=== PATIENT | female | born 1965 | race Caucasian/White ===

== ENCOUNTER 2021-02-20 23:07 | Emergency (ER) | payer BC ==
[~2021-02-20] VITALS: Ht 154.9 cm; Wt 161.0 kg
--- NOTE | 2021-02-21 01:47 | NUR ---
[facility] 30MIN ETA
--- NOTE | 2021-02-21 02:12 | NUR ---
EMS AT BEDSIDE, REPORT GIVEN
--- NOTE | 2021-02-21 02:13 | NUR ---
NURSE MINERVA NOTIFIED THAT THE PATIENT IS GOING BACK TO THE FACILITY. REPORT GIVEN
--- NOTE | 2021-02-21 02:25 | NUR ---
NEED FOR BARIATRIC DENI
--- NOTE | 2021-02-21 03:07 | NUR ---
called [facility] for bariatric transport but no availability at this time. advised to call back after 0800
--- NOTE | 2021-02-21 03:09 | NUR ---
called [facility] for pariatric transport. no available resource. call back @ [phone]
[2021-02-21] MEDS ORDERED: HYDROCODONE/APAP 10/325MG TABLET PO ONE (04:30)
[2021-02-21] MEDS ORDERED: HYDROCODONE/APAP 10/325MG TABLET ONE ×2 (04:34→21:57)
--- NOTE | 2021-02-21 04:56 | NUR ---
CALLED [facility] FOR BARIATRIC TRANSPORT. ADVISED TO CALL BACK AFTER 0700 FOR AVAILABILITY
--- NOTE | 2021-02-21 05:11 | NUR ---
[facility] ETA @ 1800.
--- NOTE | 2021-02-21 08:20 | NUR ---
CALLED [facility] FOR TRANSPORT AND THEY DO NOT ACCEPT THIS PT'S INSURANCE
[2021-02-21] MEDS ORDERED: HYDROCODONE/APAP 5/325MG TABLET ONE ×2 (08:30→14:39)
[2021-02-21] MEDS ORDERED: HYDROCODONE/APAP 5/325MG TABLET PO ONE ×2 (08:30→15:00)
--- NOTE | 2021-02-21 08:41 | NUR ---
MEDICATED PER ERMD ORDER, PT [facility]. PT SITTING UP EATING BREAKFAST.
--- NOTE | 2021-02-21 10:00 | NUR ---
PT WATCHING TV, NAD NOTED AT THIS TIME. STILL AWAITING FOR AMBULANCE. WILL CONT TO MONITOR.
--- NOTE | 2021-02-21 14:44 | NUR ---
MEDICATED PER ERMD ORDER, PT [facility].
--- NOTE | 2021-02-21 17:10 | NUR ---
PT WATCHING TV, NAD NOTED AT THIS TIME. WILL CONT TO MONITOR.
--- NOTE | 2021-02-21 18:00 | NUR ---
CALLED [facility] FOR ETA OF TRANSPORT AND WAS NOTIFIED THAT THE PT NEEDED AUTHROIZATION TO ALLOW [facility] TO PROCEED WITH TRANSFER.
--- NOTE | 2021-02-21 18:29 | NUR ---
CALLED [facility] [employer] [facility] FOR PT AT [phone] TO GET AMBULNCE AUTHORIZATION FOR PT.
--- NOTE | 2021-02-21 18:30 | NUR ---
CALLED [facility] AND WAS NOTIFIED THAT THE CREW SET UP FOR PT WAS CANCELED AND NEXT AVAILABLE TIME FOR TRANSPORT IS 1400 02/22/21.
--- NOTE | 2021-02-21 18:37 | NUR ---
CALLED [facility] AND ALL WERE SATURATED FOR TONIGHT AND COULD NOT PROVIDE TRANSPORT FOR PT
--- NOTE | 2021-02-21 19:45 | NUR ---
TRANSPORT IS 1400 02/22/21 [facility]
--- NOTE | 2021-02-21 21:50 | NUR ---
pt verbalized pain on her r foot. Dr. Newby made aware and verbal ordered received to give [place] 10-325 x 1 dose now.
[2021-02-21] MEDS: HYDROCODONE/APAP 10/325MG TABLET PO ONE (22:07)
--- NOTE | 2021-02-21 22:09 | NUR ---
pt verbalized that she take norco, tramadol, oxycodone and xanax at night which she have orders from her facility. discussed with Dr. Newby. [place] 10-325mg given and MD broderick to give the Tramadol 100mg po x 1. Noted and will carry out
[2021-02-22] MEDS ORDERED: METHOCARBAMOL (500MG) 500 MG TABLET ONE (04:15)
[2021-02-22] MEDS ORDERED: TRAMADOL HCL 50 MG TABLET ONE ×2 (04:15→11:45)
[2021-02-22] MEDS ORDERED: TRAZODONE 50 MG TABLET ONE (04:16)
--- NOTE | 2021-02-22 04:24 | NUR ---
PT REQUESTED FOR TRAZADONE AND ROBAXIN WHICH SHE TAKES AT HER FACILITY. MADE KAUR AND APPROVED TO GIVE MEDS.
[2021-02-22] MEDS ORDERED: METHOCARBAMOL (750MG) 750 MG TABLET PO SCH ×2 (04:30→13:30)
[2021-02-22] MEDS ORDERED: TRAZODONE 50 MG TABLET PO ONE (04:30)
[2021-02-22] MEDS ORDERED: TRAMADOL HCL 50 MG TABLET PO ONE ×2 (04:30→12:00)
[2021-02-22] MEDS ORDERED: HYDROCODONE/APAP 10/325MG TABLET PO ONE (07:30)
--- NOTE | 2021-02-22 07:51 | NUR ---
CALLED [facility] AND NO TRANSPORT AVAILABLE FOR THE PT
[2021-02-22] MEDS ORDERED: HYDROCODONE/APAP 5/325MG TABLET PO ONE (09:00)
[2021-02-22] MEDS ORDERED: HYDROCODONE/APAP 5/325MG TABLET ONE (09:04)
--- NOTE | 2021-02-22 13:50 | NUR ---
REPORT GIVEN TO EMS FOR PT TRANSFER BACK TO [facility].
[2021-02-22 13:53] VITALS: BP 129/70
== END 2021-02-22 13:53 | disposition home or self-care (01) ==
LOC: ER 23:24
DX: M79.671 Pain in right foot (principal); M25.774 Osteophyte, right foot; M85.40 Solitary bone cyst, unspecified site; Z88.0 Allergy status to penicillin; Z88.6 Allergy status to analgesic agent; Z91.018 Allergy to other foods
CPT/HCPCS: 73700-TC; 82962-TC